=== PATIENT | male | born 1930 | race Caucasian/White ===

== ENCOUNTER 2016-07-07 18:49 | Emergency (ER) | payer MEDICARE ==
[~2016-07-07] VITALS: Ht 177.8 cm; Wt 77.1 kg
[2016-07-07] MEDS ORDERED: BYST2.5T2 PO (19:09)
[2016-07-07] MEDS ORDERED: ASPI81TA85 PO (19:09)
[2016-07-07] MEDS ORDERED: CLOP75TA2 PO (19:09)
[2016-07-07] MEDS ORDERED: MULT1TAB8 PO (19:09)
[2016-07-07] MEDS ORDERED: SIMV40TA2 PO (19:09)
[2016-07-07] MEDS ORDERED: ISOS1TAB12 PO (19:09)
[2016-07-07] MEDS ORDERED: BENI20TA5 PO (19:09)
[2016-07-07] MEDS ORDERED: LABETALOL HCL 100 MG/20 ML VIAL IV STA (19:32)
[2016-07-07 19:40] LABS: BASO % 0.3 % (0.0-1.0); EOS # 0.2 K/mm3 (0.0-0.50); EOS % 2.2 % (0.0-3.0); LARGE UNSTAINED CELL # 0.2 K/mm3 (0.0-0.4); LARGE UNSTAINED CELL % 2.6 % (0.0-4.0); LYMPH # 2.5 K/mm3 (1.5-4.5); LYMPH % 27.4 % (24.0-44.0); MEAN CORPUSCULAR HEMOGLOBIN 32.7 pg (27.0-33.0); MEAN CORPUSCULAR HGB CONC 35.1 g/dl (32.0-36.5); MEAN CORPUSCULAR VOLUME 93.2 fl (80.0-96.0); MONO # 0.8 K/mm3 (0.0-0.8); MONO % 8.2 % (0.0-5.0); NEUTROPHILS # 5.5 K/mm3 (1.8-7.7); NEUTROPHILS % 59.3 % (36.0-66.0); PLATELET COUNT, AUTOMATED 102 k/mm3 (150-450); RED CELL DISTRIBUTION WIDTH 12.1 % (11.5-14.5); WHITE BLOOD COUNT 9.2 K/mm3 (4.0-10.0)
[2016-07-07 19:43] VITALS: BP 195/88
[2016-07-07 19:51] LABS: ANION GAP 10 MEQ/L (8-16); BLOOD UREA NITROGEN 25 MG/DL (7-18); CALCIUM LEVEL 9.2 MG/DL (8.8-10.2); CARBON DIOXIDE LEVEL 29 MEQ/L (21-32); CHLORIDE LEVEL 102 MEQ/L (98-107); CREATININE FOR GFR 0.98 MG/DL (0.70-1.30); GLOMERULAR FILTRATION RATE > 60.0 (>35); GLUCOSE, FASTING 108 MG/DL (83-110); POTASSIUM SERUM 3.5 MEQ/L (3.5-5.1); SODIUM LEVEL 141 MEQ/L (136-145)
[2016-07-07] MEDS ORDERED: HEPARIN DRIP 25,000 UNITS in APPROPRIATE DILUENT 1 EA IV SCH (20:06)
[2016-07-07] MEDS ORDERED: NS 1,000 ML IV SCH (20:06)
[2016-07-07] MEDS ORDERED: ASPIRIN 81 MG CHEW TABLET PO ONE (20:15)
[2016-07-07] MEDS ORDERED: HEPARIN SOD (PORCINE) 5000 UNITS/ML VIAL IV ONE (20:15)
[2016-07-07 20:20] LABS: INR 1.01
[2016-07-07 21:18] VITALS: BP 170/83
--- NOTE | 2016-07-08 08:44 | REP ---
PA and lateral chest: There are no comparisons. There are sternotomy wires. Cardiac size is normal. Lung fraga are clear. The usman, mediastinum, and bony thorax are unremarkable. Impression: There are no acute cardiopulmonary findings Signed by Kevon Weinberg MD 07/08/2016 08:34 A
--- NOTE | 2016-07-09 07:19 | ECGEPIP ---
Stationary ECG Study [facility] - ED Test Date: 2016-07-07 Pat Name: ROSANA BRANDON Department: Room: - Gender: M Factory [employer]: mona : 1930 Requested By: BEN Livingston Order Number: [id number] Reading MD: Nadeen Mckinley Measurements Intervals [place] Rate: 65 P: 18 MO: 253 QRS: -3 QRSD: 150 T: 15 QT: 437 QTc: 457 Interpretive Statements SINUS RHYTHM WITH FIRST DEGREE AV BLOCK RIGHT BUNDLE BRANCH BLOCK NO PRIOR FOR COMPARISON Electronically Signed On 07-09-2016 7:19:38 EDT by Nadeen Mckinley
== END 2016-07-07 21:22 | disposition short-term general hospital (02) ==
LOC: M ED 20:21
DX: I21.4 Non-ST elevation (NSTEMI) myocardial infarction (principal); I44.0 Atrioventricular block, first degree; I45.10 Unspecified right bundle-branch block; I25.10 Atherosclerotic heart disease of native coronary artery without angina pectoris; I25.2 Old myocardial infarction; I10 Essential (primary) hypertension; Z95.1 Presence of aortocoronary bypass graft; Z79.82 Long term (current) use of aspirin; Z79.899 Other long term (current) drug therapy

== ENCOUNTER → 2016-08-08 | Outpatient (REF) | payer MEDICARE, BC ==
[~2016-08-08] MED LIST: ASPI81TA85 PO; BENI1TAB PO; BYST2.5T2 PO; CLOP75TA2 PO; ISOS1TAB12 PO; MULT1TAB8 PO; SIMV40TA2 PO
== END ==
LOC: M LABDRWCV 17:16
PROVIDERS: ATTEND Urology
DX: C61 Malignant neoplasm of prostate (principal)